=== PATIENT | male | born 1955 | race Caucasian/White ===

== ENCOUNTER 2024-08-08 13:11 | Emergency (ER) | payer MEDICARE, OTHER, SELFPAY ==
[2024-08-08 13:22] VITALS: BP 175/92
--- NOTE | 2024-08-08 14:09 | ED.GENMED ---
History of Present Illness
General
Chief Complaint: Crisis Evaluation
Source: patient
Exam Limitations: none
Time Seen by Provider: 08/08/24 14:01
Nursing documentation reviewed up to this point in time: agreed with
History of Present Illness
History of Present Illness:
The patient is a 69-year-old male w/ hx HLD who presents to the emergency department due to overwhelming feelings of depression. He reports that these symptoms began approximately six months ago, intensifying over the past month. The patient
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 This morning, he felt
especially overwhelmed, prompting his decision to seek emergency medical attention. He describes frequent but not persistent suicidal thoughts, occurring every couple of days, primarily when he is alone. However, these thoughts are alleviated when
he is with his , suggesting a substantial benefit from social support. He denies any current suicidal plan and does not feel that he would ever act on these thoughts. He denies any HI, visual or auditory hallucinations.
The patient has not had any prior diagnosis of depression and has not yet engaged in mental health treatment, though he previously attempted to contact mental health providers but faced barriers in obtaining care, including availability and
insurance issues. She has a history of attending therapy to support his daughter with addiction but not for his own mental health.
He describes physical symptoms including significant weight loss of approximately 16 pounds over the last six weeks due to decreased appetite, and daily 'crushing' headaches primarily localized to his frontal region. The headaches have been
persistent for the past month. The patient reports mild intermittent dizziness and concentration difficulty. Patient denies any visual changes, numbness/tingling extremities, weakness, confusion, or ataxia.
The patient was hospitalized from May 30 to June 02 for a bowel obstruction receiving treatment at [facility].
Review of Systems
Review of Systems
Allergies reviewed?: Yes
All Other Systems: ROS reviewed and negative except as documented in HPI and ROS
Phy Exam
Physical Exam
Physical Exam:
Vitals: Hypertensive, otherwise vital signs stable. Afebrile
General: Patient is tearful appearing
Skin: Warm and dry, no rashes or lesions
Head: Normocephalic, atraumatic
Eyes: Sclera nonicteric. EOMs intact. Pupils equal round and reactive to light bilaterally. No nystagmus.
Throat: Protecting airway
Neck: Normal ROM, no cervical spine tenderness, no meningismus
Cardiac: Regular rate and rhythm, no murmurs.
Pulm: Normal respiratory effort, no wheezes, rales, rhonchi heard on exam
.
Abdomen: Abdomen soft and nontender.
Extremities: No evidence of cyanosis or edema. Palpable DP pulses bilaterally.
Neuro: AAOx3. CN II-XII grossly intact to examination. Normal [id number]. No focal neurologic deficits.
Psychiatric: Somewhat flat affect. Tearful. Not responding to any internal stimuli on exam.
Course
Orders/Labs/Results
Orders:
Orders
08/08/24 14:24
CT Head W/o Iv Contrast Urgent
Comment:
Reason For Exam: new onset depression, headache
08/08/24 14:25
Crisis Consult Routine
Reason for Consult: depression, passive SI
Vital Signs
Initial and Last Documented VS:
Initial Vital Signs
Temp Pulse Resp BP Pulse Ox
98.4 F 72 18 175/92 99
08/08/24 13:22 08/08/24 13:22 08/08/24 13:22 08/08/24 13:22 08/08/24 13:22
Last Documented Vital Signs
Temp Pulse Resp BP Pulse Ox
98.4 F 72 18 175/92 99
08/08/24 13:22 08/08/24 13:22 08/08/24 13:22 08/08/24 13:22 08/08/24 13:22
MDM/Problems Addressed
Differential Diagnosis Includes:
Not limited to: Major depressive disorder, anxiety disorder, migraine headache, tension headache, intracranial mass, etc.
MDM/Problems Addressed:
69-year-old male with history as documented presenting with progressively worsening depression and headaches. He is under significant amount of life stressors currently being worked up for Crohn disease. No suicidal plan, HI, visual/auditory
hallucinations. No substance abuse. Vitals and physical exam as above. Overall impression is depression. Do not feel patient is actively suicidal. Given associated headaches and somewhat new onset depression � will obtain CT head to r/o intracranial
abnormality. Will consult crisis team.
Update: CT head without acute findings. Crisis evaluated patient at bedside who were able to provide multiple outpatient resources for psychiatry/therapy. At this point, do not feel patient is a threat to himself or others. Do not feel patient
requires impatient psychiatric treatment at this time. Feel stable for outpatient management and close primary care follow up. Discussed that if headaches persist and/or worsen than he will likely require MRI/further work-up. Very strict precautions
discussed.
Chronic conditions affecting care:
N/A
Acute Exacerbation and/or Progression of Chronic Illness:
N/A
*Radiology
Radiology exam reviewed: preliminary read by ED provider (Head CT reviewed by me-no acute abnormalities) and radiology read reviewed
*Pulse Oximetry
Patient hypoxic: no
*EKG
Interpreted by ED Provider?: NA
*Weather Forcaster Interpretation
Rate: Weather Forcaster- N/A
*Critical Care Note
Total Time (30-74mins, 75-104mins- exclusive of procedures): Not Applicable
ED Attending Note
-
Portions of this chart may have been created with voice recognition software.� Occasional wrong word or��sound alike� substitutions may have occurred due to the inherent limitations of voice recognition software.
Discharge Plan
Departure
Patient Disposition: Home (Routine Discharge)
Date of Disposition: 08/08/24
Time of Disposition: 17:17
Patient with high blood pressure during this ER visit?: Yes
Condition: Good
Covid-19: Not Applicable
Discharge Problem:
Depression
Instructions: Depression, Adult (DC), BLOOD PRESSURE
Referrals:
Ken Cabrera DO [Family Provider, Internal Medicine] - Follow up in 2-3 days
Activity Restrictions/Additional Instructions:
RETURN TO THE EMERGENCY DEPARTMENT WITH ANY THOUGHTS OF HARMING YOURSELF, THOUGHTS OF HARMING ANYONE ELSE, AUDITORY/VISUAL HALLUCINATIONS, WORSENING HEADACHE, OTHER NEUROLOGIC SYMPTOMS, OR ANY OTHER CONCERNS
- As discussed�your head CT showed no acute abnormalities today. You should monitor your headaches closely. If symptoms persist/worsen follow-up with primary care as you may require an MRI of your brain.
- Stay well-hydrated and get plenty of rest. Take Tylenol as needed for pain.
- You are given multiple resources today in the emergency department via crisis department. Please contact these today/tomorrow for prompt follow-up to get in touch with therapist/psychiatrist.
Monitor your symptoms closely and return to the emergency department with any acute worsening/new symptoms or any other concerns
Interventions
Interventions:
*Risk Screen - Suicide Last Done: 08/08/24 13:22
*General Assessment Last Done: 08/08/24 13:22
*Neglect/Abuse Screening Last Done: 08/08/24 13:22
*ED- Fall Risk Assessment Last Done: 08/08/24 13:22
*ED COVID-19 Vaccine History Last Done: 08/08/24 13:22
*Nursing Disposition Last Done: 08/08/24 17:41
ED-Psychological Assessment Last Done: 08/08/24 13:52
Discharge Date and Time
Discharge Date/Time: 08/08/24 17:42
Print Language: TUVALU[place]
== END 2024-08-08 17:42 | disposition home or self-care (01) ==
LOC: EMR 13:11
PROVIDERS: EMERGENCY PHYSICIAN Emergency Medicine; FAMILY PHYSICIAN Internal Medicine
DX: F32.A Depression, unspecified (principal); R51.9 Headache, unspecified; E78.5 Hyperlipidemia, unspecified; Z65.3 Problems related to other legal circumstances
CPT/HCPCS: 99284; 70450